=== PATIENT | male | born 1960 | race African-American/Black ===

== ENCOUNTER → 2017-03-15 | Outpatient (CLI) | payer MEDICAID, OTHER | LOC: MW.CHIM 08:31 | PROVIDERS: ATTEND Internal Medicine | DX: R19.7 Diarrhea, unspecified (principal) | CPT/HCPCS: 83630; 87046; 87324; 87899 ==

== ENCOUNTER 2017-04-08 15:34 | Emergency (ER) | payer MEDICAID, OTHER ==
[2017-04-08] MEDS ORDERED: Sodium Chloride 0.9% 2.5 ML Syringe FLUSH PRN (16:32)
[2017-04-08] MEDS ORDERED: Morphine 2 MG/ML Syringe IVPUSH ONE (16:32)
[2017-04-08] MEDS ORDERED: Ondansetron 4 MG/2 ML SDV IVPUSH ONE (16:32)
[2017-04-08] MEDS ORDERED: Sodium Chloride 0.9% 10 ML Syringe FLUSH PRN (16:32)
[2017-04-08] MEDS ORDERED: Sodium Chloride 0.9% 1,000 ML IV ONE (16:32)
[2017-04-08] MEDS ORDERED: Insulin Regular, Human 100 Units/ML 10 ML Vial SUBCUT ONE (16:32)
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
[2017-04-08 17:09] LABS: CHLORIDE,CL 100 mmol/L (98-110); SODIUM,NA 133 mmol/L (136-146)
[2017-04-08] MEDS ORDERED: Iopamidol 755 Mg/ML 100 ML Bottle IVPUSH STA (18:16)
[2017-04-08 19:35] VITALS: BP 134/85
--- NOTE | 2017-04-09 17:26 | CT ---
EXAM DATE: 04/08/17 PATIENT'S AGE: 57 Patient: MEGHA CORDOVA Facility: [place], [place] Site . Site : 1960 Study: CT Abdomen/Pelvis [id number]/[id number] 6:29:38 PM Ordering Physician: Yanick Christiansen Final Report: INDICATION: Abdominal pain. Dizziness. TECHNIQUE: CT abdomen and pelvis acquired with 100 mL of Isovue 370 IV contrast. COMPARISON: CT abdomen and pelvis November 08, 2016. FINDINGS: Lower chest: Unremarkable. Liver: Fatty change. Spleen: Unremarkable. Pancreas: Unremarkable. Gallbladder and bile ducts: Unremarkable. Kidneys: Unremarkable. Adrenal glands: Unremarkable. GI tract: There is fecal loading of the colon. Multifocal areas of small bowel feces sign are noted. No high-grade bowel obstruction. No evidence of acute appendicitis. No free air or free fluid. Vascular structures: Unremarkable. Lymph nodes: Unremarkable. Pelvic Organs: Mild prostatomegaly as before. Bladder is unremarkable. Bones: No acute abnormality. IMPRESSION: Multi focal areas of small bowel feces sign and diffuse fecal loading of the colon. Findings suggest decreased gastrointestinal transit. Low grade partial obstruction is also a consideration. Dictated by Garrett Holley MD @ 04/08/2017 7:04:46 PM Dictated by: Garrett Holley MD @ 04/08/2017 19:06:03 (Electronic Signature) Report Signed by Proxy. [facility]
== END 2017-04-08 19:41 | disposition home or self-care (01) ==
LOC: MW.ED 15:34
DX: K59.09 Other constipation (principal); E11.65 Type 2 diabetes mellitus with hyperglycemia; Z79.4 Long term (current) use of insulin
CPT/HCPCS: 36415; 74177; 80053; 81001; 82009; 82150; 82962; 83036; 83690; 85025; 96361; 96372; 96374; 96375; 99284; J2270; J2405; J7040; Q9967; J1815-GY

== ENCOUNTER 2017-05-03 21:21 | Emergency (ER) | payer MEDICAID, OTHER ==
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
[2017-05-03 22:02] LABS: CHLORIDE,CL 105 mmol/L (98-110); SODIUM,NA 137 mmol/L (136-146)
[2017-05-03 22:33] VITALS: BP 132/76
== END 2017-05-03 22:30 | disposition home or self-care (01) ==
LOC: MW.ED 21:21
DX: H60.11 Cellulitis of right external ear (principal); I10 Essential (primary) hypertension; E11.9 Type 2 diabetes mellitus without complications; Z79.4 Long term (current) use of insulin; Z79.84 Long term (current) use of oral hypoglycemic drugs; Z79.899 Other long term (current) drug therapy
CPT/HCPCS: 36415; 80053; 85025; 99282; 99283

== ENCOUNTER 2017-05-07 00:40 | Observation (INO) | payer SELFPAY ==
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
[2017-05-07] MEDS ORDERED: Sodium Chloride 0.9% 1,000 ML IV SCH (01:00)
[2017-05-07 01:33] LABS: CHLORIDE,CL 101 mmol/L (98-110); SODIUM,NA 132 mmol/L (136-146)
[2017-05-07] MEDS: Acetaminophen/oxyCODONE 325-10 MG Tab PO PRN (03:23)
[2017-05-07] MEDS: Piperacillin/Tazobactam 3.375 GM in Sodium Chloride 0.9% 50 ML IV SCH ×4 (03:24→21:41)
[2017-05-07] MEDS: Insulin Aspart 100 Units/ML 3 ML Pen SUBCUT SCH ×5 (03:58→21:46)
[2017-05-07] MEDS: HYDROmorphone 2 MG/ML Syringe IVPUSH PRN ×4 (03:59→16:18)
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
[2017-05-07] MEDS: Lisinopril 10 MG Tab PO SCH (08:52)
[2017-05-07] MEDS: Sodium Chloride 0.9% 1,000 ML IV SCH ×2 (08:54→21:40)
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
--- NOTE | 2017-05-07 10:55 | CT ---
EXAM DATE: 05/07/17 PATIENT'S AGE: 57 Patient: MEGHA CORDOVA Facility: [place], [place] Site . Site : 1960 Study: CT Head WO CONT [id number]/14/2017 1:32:17 AM Ordering Physician: Willy Ayala Final Report: INDICATIONS: Pain. Cellulitis right ear for 5 days. TECHNIQUE: CT head without contrast. COMPARISON: None FINDINGS: No mass effect or midline shift. No hydrocephalus. No CT evidence of acute hemorrhage or infarction. No abnormal extra-axial fluid collection. Bone windows show no acute abnormality. Visualized paranasal sinuses and orbits are unremarkable. Diffuse heterogeneous soft tissue thickening and stranding in the soft tissues about the right ear. There is a rounded focus concerning for developing abscess in the soft tissues adjacent to the right ear, for example as seen on axial image 21 of series 201. This measures approximately 1.2 cm. IMPRESSION: No acute intracranial abnormality. Diffuse heterogeneous soft tissue thickening and stranding of the soft tissues about the right ear, worrisome for cellulitis. Suspected small superficial soft tissue abscess measuring 1.2 cm in the preauricular region. Dictated by Garrett Holley MD @ 05/07/2017 1:44:39 AM Dictated by: Garrett Holley MD @ 05/07/2017 01:49:06 (Electronic Signature) Report Signed by Proxy. [facility]
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
[2017-05-07] MEDS ORDERED: fentaNYL 100 MCG/2 ML SDV ONE ×2 (17:29→19:08)
[2017-05-07] MEDS ORDERED: Propofol 200 MG/20 ML SDV ONE ×2 (17:29→19:11)
[2017-05-07] MEDS ORDERED: Lidocaine 2% 5 ML SDV ONE (17:29)
[2017-05-07] MEDS ORDERED: Midazolam 1 MG/ML 2 ML SDV ONE (17:29)
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
[2017-05-07] MEDS ORDERED: Lidocaine 2% with EPINEPHrine 1:100,000 20 ML MDV ONE (18:56)
[2017-05-07] MEDS ORDERED: Lidocaine 1% 50 ML MDV ONE (18:56)
--- NOTE | 2017-05-07 20:31 | PCM.POSTAN ---
POST ANESTHESIA ASSESSMENT - MENTAL STATUS Mental Status: alert, oriented - RESPIRATORY Respiratory Status: respiratory rate WNL, airway patent, O2 saturation stable - CARDIOVASCULAR CV Status: pulse rate WNL, blood pressure stable - GASTROINTESTINAL GI Status: no symptoms - POST OP HYDRATION Hydration Status: adequate & stable
--- NOTE | 2017-05-07 20:32 | PCM48HPAN ---
Post Anesthesia Note - EVALUATION WITHIN 48HRS OF ANESTHETIC Vital Signs in Normal Range: Yes Patient Participated in Evaluation: Yes Respiratory Function Stable: Yes Airway Patent: Yes Cardiovascular Function Stable: Yes Hydration Status Stable: Yes Pain Control Satisfactory: Yes Nausea and Vomiting Control Satisfactory: Yes Mental Status Recovered: Yes
[2017-05-08] MEDS: HYDROmorphone 2 MG/ML Syringe IVPUSH PRN ×4 (00:26→16:38)
[2017-05-08] MEDS: Piperacillin/Tazobactam 3.375 GM in Sodium Chloride 0.9% 50 ML IV SCH ×3 (04:00→14:54)
[2017-05-08] MEDS: Insulin Aspart 100 Units/ML 3 ML Pen SUBCUT SCH ×3 (06:48→17:02)
[2017-05-08 07:11] LABS: CHLORIDE,CL 106 mmol/L (98-110); SODIUM,NA 133 mmol/L (136-146)
[2017-05-08] MEDS: Acetaminophen/oxyCODONE 325-10 MG Tab PO PRN ×2 (07:40→14:53)
[2017-05-08] MEDS: Sodium Chloride 0.9% 1,000 ML IV SCH (08:23)
[2017-05-08] MEDS: Lisinopril 10 MG Tab PO SCH (09:15)
--- NOTE | 2017-05-08 09:29 | PCM.PN ---
- General Info Date of Service: 05/08/17 Functional Status: Reports: tolerating diet, urinating - Review of Systems General: Reports: No Symptoms HEENT: Reports: no symptoms Pulmonary: Reports: no symptoms Cardiovascular: Reports: No Symptoms Gastrointestinal: Reports: No symptoms Genitourinary: Reports: no symptoms Musculoskeletal: Reports: no symptoms Skin: Reports: no symptoms Neurological: Reports: No Symptoms Psychiatric: Reports: no symptoms - Patient Data Vitals - most recent: Last Vital Signs Temp 98.5 F 05/08/17 04:00 Pulse 69 05/08/17 04:00 Resp 16 05/08/17 04:00 BP 132/83 05/08/17 09:15 Pulse Ox 97 05/08/17 04:00 Weight - most recent: 79.968 kg I&O - last 24 hours: Intake & Output 05/07/17 05/08/17 05/08/17 22:59 06:59 14:59 Intake Total 2000 1000 1050 Output Total 250 700 Balance 6609 [id number] 2430 Lab Results last 24 hrs: Laboratory Results - last 24 hr 05/07/17 05/07/17 05/07/17 Range/Units 11:47 16:02 19:55 WBC (4.0-11.0) K/uL RBC (4.50-5.90) M/uL Hgb (13.0-17.0) g/dL Hct (38.0-50.0) % MCV (80.0-98.0) fL MCH (27.0-32.0) pg MCHC (31.0-37.0) g/dL RDW Std Deviation (28.0-62.0) fl RDW Coeff of Brittney (11.0-15.0) % Plt Count (150-400) K/uL MPV (7.40-12.00) fL Nucleated RBC % /100WBC Nucleated RBCs # K/uL Sodium (136-146) mmol/L Potassium (3.5-5.1) mmol/L Chloride (98-110) mmol/L Carbon Dioxide (21-31) mmol/L BUN (6.0-23.0) mg/dL Creatinine (0.6-1.5) mg/dL Est Cr Clr Drug Dosing mL/min Estimated GFR (MDRD) ml/min Glucose (60-110) mg/dL POC Glucose 236 H 192 H 157 H (60-110) mg/dL Calcium (8.8-10.8) mg/dL 05/07/17 05/08/17 05/08/17 Range/Units 21:45 06:15 06:15 WBC 6.00 (4.0-11.0) K/uL RBC 4.10 L (4.50-5.90) M/uL Hgb 12.1 L (13.0-17.0) g/dL Hct 37.1 L (38.0-50.0) % MCV 90.5 (80.0-98.0) fL MCH 29.5 (27.0-32.0) pg MCHC 32.6 (31.0-37.0) g/dL RDW Std Deviation 40.4 (28.0-62.0) fl RDW Coeff of Brittney 12 (11.0-15.0) % Plt Count 264 (150-400) K/uL MPV 9.40 (7.40-12.00) fL Nucleated RBC % 0.0 /100WBC Nucleated RBCs # 0 K/uL Sodium 133 L (136-146) mmol/L Potassium 3.9 (3.5-5.1) mmol/L Chloride 106 (98-110) mmol/L Carbon Dioxide 24 (21-31) mmol/L BUN 8 (6.0-23.0) mg/dL Creatinine 0.8 (0.6-1.5) mg/dL Est Cr Clr Drug Dosing 89.72 mL/min Estimated GFR (MDRD) > 60.0 ml/min Glucose 220 H (60-110) mg/dL POC Glucose 149 H (60-110) mg/dL Calcium 8.6 L (8.8-10.8) mg/dL 05/08/17 Range/Units 06:43 WBC (4.0-11.0) K/uL RBC (4.50-5.90) M/uL Hgb (13.0-17.0) g/dL Hct (38.0-50.0) % MCV (80.0-98.0) fL MCH (27.0-32.0) pg MCHC (31.0-37.0) g/dL RDW Std Deviation (28.0-62.0) fl RDW Coeff of Brittney (11.0-15.0) % Plt Count (150-400) K/uL MPV (7.40-12.00) fL Nucleated RBC % /100WBC Nucleated RBCs # K/uL Sodium (136-146) mmol/L Potassium (3.5-5.1) mmol/L Chloride (98-110) mmol/L Carbon Dioxide (21-31) mmol/L BUN (6.0-23.0) mg/dL Creatinine (0.6-1.5) mg/dL Est Cr Clr Drug Dosing mL/min Estimated GFR (MDRD) ml/min Glucose (60-110) mg/dL POC Glucose 195 H (60-110) mg/dL Calcium (8.8-10.8) mg/dL Med Orders - Current: Current Medications Hydromorphone HCl (Dilaudid) 2 mg IVPUSH Q3H PRN PRN Reason: Pain (severe 7-10) Last Admin: 05/08/17 09:07 Dose: 2 mg Piperacillin Sod/Tazobactam (Sod 3.375 gm/ Sodium Chloride) 50 mls @ 100 mls/ hr IV Q6H [facility] Last Admin: 05/08/17 09:08 Dose: 100 mls/hr Vancomycin HCl 1 gm/ Sodium (Chloride) 250 mls @ 166 mls/hr IV Q12H [facility] Last Admin: 05/08/17 00:28 Dose: 166 mls/hr Sodium Chloride (Normal Saline) 1,000 mls @ 125 mls/hr IV ASDIRECTED [facility] Last Admin: 05/08/17 08:23 Dose: 125 mls/hr Insulin Aspart (Novolog) 0 unit SUBCUT ACBED [facility] PRN Reason: Protocol Last Admin: 05/08/17 06:48 Dose: 2 units Lisinopril (Prinivil) 20 mg PO DAILY [facility] Last Admin: 05/08/17 09:15 Dose: 20 mg Oxycodone/Acetaminophen (Percocet 325-10 Mg) 1 tab PO Q4H PRN PRN Reason: Pain Last Admin: 05/08/17 07:40 Dose: 1 tab Vancomycin HCl (Pharmacy To Dose - Vancomycin) 1 dose .XX ASDIRECTED [facility] Discontinued Medications Fentanyl (Sublimaze) Confirm Administered Dose 100 mcg .ROUTE .STK-MED ONE Stop: 05/07/17 17:30 Fentanyl (Sublimaze) Confirm Administered Dose 100 mcg .ROUTE .STK-MED ONE Stop: 05/07/17 19:09 Sodium Chloride (Normal Saline) 1,000 mls @ 999 mls/hr IV STAT [facility] Last Admin: 05/07/17 01:01 Dose: 999 mls/hr Vancomycin HCl 1 gm/ Sodium (Chloride) 250 mls @ 166 mls/hr IV ONETIME ONE Stop: 05/07/17 02:22 Last Admin: 05/07/17 01:02 Dose: 166 mls/hr Lidocaine (Xylocaine-Mpf 2%) Confirm Administered Dose 5 ml .ROUTE .STK-MED ONE Stop: 05/07/17 17:30 Lidocaine HCl (Xylocaine 1%) Confirm Administered Dose 50 ml .ROUTE .STK-MED ONE Stop: 05/07/17 18:57 Lidocaine/Epinephrine (Xylocaine 2% With Epinephrine 1:100,000) Confirm Administered Dose 20 ml .ROUTE .STK-MED ONE Stop: 05/07/17 18:57 Midazolam HCl (Versed 1 Mg/Ml) Confirm Administered Dose 2 mg .ROUTE .STK-MED ONE Stop: 05/07/17 17:30 Propofol (Diprivan 20 Ml) Confirm Administered Dose 400 mg .ROUTE .STK-MED ONE Stop: 05/07/17 17:30 Propofol (Diprivan 20 Ml) Confirm Administered Dose 200 mg .ROUTE .STK-MED ONE Stop: 05/07/17 19:12 - Exam General: alert, oriented HEENT: Pupils equal, EOMI Neck: supple, trachea midline Lungs: Clear to auscultation, Normal respiratory effort Cardiovascular: Regular Rate, Regular Rhythm Back Exam: Normal Inspection Extremities: no edema Skin: warm, dry, intact Wound/Incisions: dressing dry and intact Neurological: no new focal deficit Psy/Mental Status: alert, normal affect, normal mood - Problem List Review Problem List Initiated/Reviewed/Updated: Yes - My Orders Last 24 Hours: My Active Orders 05/07/17 14:39 Code Status [Resuscitation Status] Routine - Plan Plan:: 57 yo male s/p right preauricular abscess drainage continue zosyn and vancomycin continue novolog ISS. monitor blood sugars Pain: po percocet and iv diluadid prn
--- NOTE | 2017-05-08 13:55 | PCM.CONSN ---
- General Info Date of Service: 05/08/17 Subjective Update: POD 1 Incision and drainage of Right pre auricular abscess likely secondary to infected pre auricular sinus Pain improved ++ since yesterday - overall feels better Functional Status: Reports: pain controlled - Review of Systems General: Reports: Fatigue HEENT: Reports: other Pulmonary: Reports: no symptoms Cardiovascular: Reports: No Symptoms Neurological: Reports: No Symptoms Psychiatric: Reports: no symptoms - Patient Data Vitals - most recent: Last Vital Signs Temp 37.1 C 05/08/17 08:00 Pulse 73 05/08/17 08:00 Resp 18 05/08/17 08:00 BP 132/83 05/08/17 09:15 Pulse Ox 95 05/08/17 08:00 Weight - most recent: 79.968 kg I&O - last 24 hours: Intake & Output 05/07/17 05/08/17 05/08/17 22:59 06:59 14:59 Intake Total 2000 1000 1100 Output Total 250 700 Balance 1022 436 8901 Lab Results last 24 hrs: Laboratory Results - last 24 hr 05/07/17 05/07/17 05/07/17 Range/Units 16:02 19:55 21:45 WBC (4.0-11.0) K/uL RBC (4.50-5.90) M/uL Hgb (13.0-17.0) g/dL Hct (38.0-50.0) % MCV (80.0-98.0) fL MCH (27.0-32.0) pg MCHC (31.0-37.0) g/dL RDW Std Deviation (28.0-62.0) fl RDW Coeff of Brittney (11.0-15.0) % Plt Count (150-400) K/uL MPV (7.40-12.00) fL Nucleated RBC % /100WBC Nucleated RBCs # K/uL Sodium (136-146) mmol/L Potassium (3.5-5.1) mmol/L Chloride (98-110) mmol/L Carbon Dioxide (21-31) mmol/L BUN (6.0-23.0) mg/dL Creatinine (0.6-1.5) mg/dL Est Cr Clr Drug Dosing mL/min Estimated GFR (MDRD) ml/min Glucose (60-110) mg/dL POC Glucose 192 H 157 H 149 H (60-110) mg/dL Calcium (8.8-10.8) mg/dL Vancomycin Trough (5-15) ug/mL 05/08/17 05/08/17 05/08/17 Range/Units 06:15 06:15 06:43 WBC 6.00 (4.0-11.0) K/uL RBC 4.10 L (4.50-5.90) M/uL Hgb 12.1 L (13.0-17.0) g/dL Hct 37.1 L (38.0-50.0) % MCV 90.5 (80.0-98.0) fL MCH 29.5 (27.0-32.0) pg MCHC 32.6 (31.0-37.0) g/dL RDW Std Deviation 40.4 (28.0-62.0) fl RDW Coeff of Brittney 12 (11.0-15.0) % Plt Count 264 (150-400) K/uL MPV 9.40 (7.40-12.00) fL Nucleated RBC % 0.0 /100WBC Nucleated RBCs # 0 K/uL Sodium 133 L (136-146) mmol/L Potassium 3.9 (3.5-5.1) mmol/L Chloride 106 (98-110) mmol/L Carbon Dioxide 24 (21-31) mmol/L BUN 8 (6.0-23.0) mg/dL Creatinine 0.8 (0.6-1.5) mg/dL Est Cr Clr Drug Dosing 89.72 mL/min Estimated GFR (MDRD) > 60.0 ml/min Glucose 220 H (60-110) mg/dL POC Glucose 195 H (60-110) mg/dL Calcium 8.6 L (8.8-10.8) mg/dL Vancomycin Trough (5-15) ug/mL 05/08/17 05/08/17 Range/Units 11:50 11:51 WBC (4.0-11.0) K/uL RBC (4.50-5.90) M/uL Hgb (13.0-17.0) g/dL Hct (38.0-50.0) % MCV (80.0-98.0) fL MCH (27.0-32.0) pg MCHC (31.0-37.0) g/dL RDW Std Deviation (28.0-62.0) fl RDW Coeff of Brittney (11.0-15.0) % Plt Count (150-400) K/uL MPV (7.40-12.00) fL Nucleated RBC % /100WBC Nucleated RBCs # K/uL Sodium (136-146) mmol/L Potassium (3.5-5.1) mmol/L Chloride (98-110) mmol/L Carbon Dioxide (21-31) mmol/L BUN (6.0-23.0) mg/dL Creatinine (0.6-1.5) mg/dL Est Cr Clr Drug Dosing mL/min Estimated GFR (MDRD) ml/min Glucose (60-110) mg/dL POC Glucose 269 H (60-110) mg/dL Calcium (8.8-10.8) mg/dL Vancomycin Trough 6.1 (5-15) ug/mL Jaylan Results last 24 hrs: Microbiology 05/07/17 19:10 Gram Stain - Preliminary Abscess - Ear, Right Med Orders - Current: Current Medications Hydromorphone HCl (Dilaudid) 2 mg IVPUSH Q3H PRN PRN Reason: Pain (severe 7-10) Last Admin: 05/08/17 09:07 Dose: 2 mg Piperacillin Sod/Tazobactam (Sod 3.375 gm/ Sodium Chloride) 50 mls @ 100 mls/ hr IV Q6H [facility] Last Admin: 05/08/17 09:08 Dose: 100 mls/hr Sodium Chloride (Normal Saline) 1,000 mls @ 125 mls/hr IV ASDIRECTED [facility] Last Admin: 05/08/17 08:23 Dose: 125 mls/hr Vancomycin HCl 1 gm/ Sodium (Chloride) 250 mls @ 166 mls/hr IV Q8H [facility] Last Admin: 05/08/17 13:08 Dose: 166 mls/hr Insulin Aspart (Novolog) 0 unit SUBCUT ACBED [facility] PRN Reason: Protocol Last Admin: 05/08/17 12:07 Dose: 6 units Lisinopril (Prinivil) 20 mg PO DAILY [facility] Last Admin: 05/08/17 09:15 Dose: 20 mg Oxycodone/Acetaminophen (Percocet 325-10 Mg) 1 tab PO Q4H PRN PRN Reason: Pain Last Admin: 05/08/17 07:40 Dose: 1 tab Vancomycin HCl (Pharmacy To Dose - Vancomycin) 1 dose .XX ASDIRECTED [facility] Discontinued Medications Fentanyl (Sublimaze) Confirm Administered Dose 100 mcg .ROUTE .STK-MED ONE Stop: 05/07/17 17:30 Fentanyl (Sublimaze) Confirm Administered Dose 100 mcg .ROUTE .STK-MED ONE Stop: 05/07/17 19:09 Sodium Chloride (Normal Saline) 1,000 mls @ 999 mls/hr IV STAT [facility] Last Admin: 05/07/17 01:01 Dose: 999 mls/hr Vancomycin HCl 1 gm/ Sodium (Chloride) 250 mls @ 166 mls/hr IV ONETIME ONE Stop: 05/07/17 02:22 Last Admin: 05/07/17 01:02 Dose: 166 mls/hr Vancomycin HCl 1 gm/ Sodium (Chloride) 250 mls @ 166 mls/hr IV Q12H [facility] Last Admin: 05/08/17 00:28 Dose: 166 mls/hr Lidocaine (Xylocaine-Mpf 2%) Confirm Administered Dose 5 ml .ROUTE .STK-MED ONE Stop: 05/07/17 17:30 Lidocaine HCl (Xylocaine 1%) Confirm Administered Dose 50 ml .ROUTE .STK-MED ONE Stop: 05/07/17 18:57 Lidocaine/Epinephrine (Xylocaine 2% With Epinephrine 1:100,000) Confirm Administered Dose 20 ml .ROUTE .STK-MED ONE Stop: 05/07/17 18:57 Midazolam HCl (Versed 1 Mg/Ml) Confirm Administered Dose 2 mg .ROUTE .STK-MED ONE Stop: 05/07/17 17:30 Propofol (Diprivan 20 Ml) Confirm Administered Dose 400 mg .ROUTE .STK-MED ONE Stop: 05/07/17 17:30 Propofol (Diprivan 20 Ml) Confirm Administered Dose 200 mg .ROUTE .STK-MED ONE Stop: 05/07/17 19:12 - Exam General: alert, oriented HEENT: Other Neck: supple Skin: warm, dry, intact Physical Findings Comments:: Head dressing in place Dressing removed The wound packing was removed Very minimal purulence expressed Swelling improved +++ Some swelling around the sinus + Tragal tenderness resolved; some swelling persists Consult PN Assessment/Plan Procedures: Procedures ASSAY OF AMYLASE (04/08/17) ASSAY OF LIPASE (04/08/17) CHEST X-RAY 2VW FRONTAL&LATL (11/08/16) CLOSTRIDIUM AG IA (03/15/17) COMPLETE CBC W/AUTO DIFF WBC (05/03/17) COMPREHEN METABOLIC PANEL (05/03/17) CT ABD & PELV W/CONTRAST (04/08/17) CT ABD & PELVIS W/O CONTRAST (11/08/16) ELECTROCARDIOGRAM TRACING (11/08/16) EMERGENCY DEPT VISIT (05/03/17) EMERGENCY DEPT VISIT (04/08/17) GLUCOSE BLOOD TEST (04/08/17) GLYCOSYLATED HEMOGLOBIN TEST (04/08/17) HYDRATE IV INFUSION ADD-ON (04/08/17) HYDRATION IV INFUSION INIT (11/08/16) LACTOFERRIN FECAL (QUAL) (03/15/17) PROTHROMBIN TIME (11/08/16) ROUTINE VENIPUNCTURE (05/03/17) STOOL CULTR AEROBIC BACT EA (03/15/17) TEST FOR ACETONE/KETONES (04/08/17) THER/PROPH/DIAG INJ IV PUSH (04/08/17) THER/PROPH/DIAG INJ SC/IM (04/08/17) TX/PRO/DX INJ NEW DRUG ADDON (04/08/17) URINALYSIS AUTO W/SCOPE (04/08/17) (1) Perichondritis of right pinna SNOMED Code(s): 23471937 Code(s): H61.001 - UNSPECIFIED PERICHONDRITIS OF RIGHT EXTERNAL EAR Current Visit: Yes (2) Cellulitis SNOMED Code(s): 224029854 Code(s): L03.90 - CELLULITIS, UNSPECIFIED Current Visit: Yes (3) Facial abscess SNOMED Code(s): 170710892 Code(s): L02.01 - CUTANEOUS ABSCESS OF FACE Current Visit: Yes (4) Hyperglycemia SNOMED Code(s): 17820857 Code(s): R73.9 - HYPERGLYCEMIA, UNSPECIFIED Current Visit: No Problem List Initiated/Reviewed/Updated: Yes My Orders last 24 hours: My Active Orders 05/07/17 19:10 CULTURE ANAEROBIC [RM] Routine CULTURE EAR [RM] Routine GRAM STAIN [RM] Routine Plan: - Continue with IV antibiotics - Glycemic control to facilitate wound healing - Can be discharged on PO Augmentin for 10 days - Follow up in ENT clinic Wednesday - 05/10 - Recommend formal excision of the pre auricular tract to prevent further infections - To follow up on wound C/S ( gram stain reviewed) - Discussed with th patient and his
[2017-05-08 17:59] VITALS: BP 136/78
--- NOTE | 2017-05-08 19:24 | PCM.DCSUM1 ---
Discharge Summary - Hospital Course Brief History: He was admitted to the hospital with a right preauricular sinus. - Discharge Data Discharge Date: 05/08/17 Discharge Disposition: Home, Self-Care 01 Condition: Good - Discharge Diagnosis/Problem(s) (1) Cellulitis SNOMED Code(s): 255602145 ICD Code: L03.90 - CELLULITIS, UNSPECIFIED Status: Acute Current Visit: Yes (2) Facial abscess SNOMED Code(s): 722892399 ICD Code: L02.01 - CUTANEOUS ABSCESS OF FACE Status: Acute Current Visit : Yes - Patient Summary/Data Consults: Consultations 05/07/17 08:12 Consult to Physician [CONS] Urgent Hospital Course: He was started on zosyn and vancomycin. Dr Villar, ENT , saw him in consultation. She took him to the operating room where she performed an incision and drainage. Gram stain showed gram positive cocci and gram negative organisms. His blood sugars were monitored. He feels much better at discharge. He has been advised regarding potential hazards of opioid use. He is to stay off of work at least until May 11, 2017. He is prescribed: Percocet 10/325 1 po q 4 hours prn pain #30 Bactrim DS bid x 10 days Augmentin 875 po bid x [address] Follow up [address] Villar on Wednesday, May 10, 2017. also routine follow up with his primary care attending physician, Dr Silvino Ott MD - Discharge Plan Prescriptions/Med Rec: Amoxicillin/Clavulanate K [Augmentin 875 MG/125 MG] 1 tab PO Q12HR #20 tablet Sulfamethoxazole/Trimethoprim [Bactrim Ds Tablet] 1 each PO BID #20 tablet oxyCODONE HCl/Acetaminophen [Percocet 10-325 mg Tablet] 1 each PO Q4H PRN #30 tablet PRN Reason: Pain Home Medications: Home Meds Insulin Aspart [NovoLOG] 15 dose SQ BID 11/08/16 [History] Lisinopril 20 mg PO DAILY 05/03/17 [History] metFORMIN HCl [Metformin HCl] 500 mg PO BID 05/03/17 [History] Amoxicillin/Clavulanate K [Augmentin 875 MG/125 MG] 1 tab PO Q12HR #20 tablet [Rx] Sulfamethoxazole/Trimethoprim [Bactrim Ds Tablet] 1 each PO BID #20 tablet 05/08 [Rx] oxyCODONE HCl/Acetaminophen [Percocet 10-325 mg Tablet] 1 each PO Q4H PRN #30 tablet 05/08/17 [Rx] Patient Handouts: Abscess, [id number], Cellulitis, Adult, [id number] Referrals: Michelle Villar MD [Physician] - 05/10/17 (pls make an appt to see Dr. Villar on Wednesday.) - Patient Data Vitals - Most Recent: Last Vital Signs Temp 97.8 F 05/08/17 16:00 Pulse 71 05/08/17 16:00 Resp 18 05/08/17 16:00 BP 136/78 05/08/17 16:00 Pulse Ox 93 L 05/08/17 16:00 Weight - Most Recent: 79.968 kg I&O - Last 24 hours: Intake & Output 05/08/17 05/08/17 05/08/17 06:59 14:59 22:59 Intake Total 1000 1350 1505 Output Total 700 700 Balance 300 1350 805 Lab Results - Last 24 hrs: Laboratory Results - last 24 hr 05/07/17 05/07/17 05/07/17 Range/Units 16:02 19:55 21:45 WBC (4.0-11.0) K/uL RBC (4.50-5.90) M/uL Hgb (13.0-17.0) g/dL Hct (38.0-50.0) % MCV (80.0-98.0) fL MCH (27.0-32.0) pg MCHC (31.0-37.0) g/dL RDW Std Deviation (28.0-62.0) fl RDW Coeff of Brittney (11.0-15.0) % Plt Count (150-400) K/uL MPV (7.40-12.00) fL Nucleated RBC % /100WBC Nucleated RBCs # K/uL Sodium (136-146) mmol/L Potassium (3.5-5.1) mmol/L Chloride (98-110) mmol/L Carbon Dioxide (21-31) mmol/L BUN (6.0-23.0) mg/dL Creatinine (0.6-1.5) mg/dL Est Cr Clr Drug Dosing mL/min Estimated GFR (MDRD) ml/min Glucose (60-110) mg/dL POC Glucose 192 H 157 H 149 H (60-110) mg/dL Calcium (8.8-10.8) mg/dL Vancomycin Trough (5-15) ug/mL 05/08/17 05/08/17 05/08/17 Range/Units 06:15 06:15 06:43 WBC 6.00 (4.0-11.0) K/uL RBC 4.10 L (4.50-5.90) M/uL Hgb 12.1 L (13.0-17.0) g/dL Hct 37.1 L (38.0-50.0) % MCV 90.5 (80.0-98.0) fL MCH 29.5 (27.0-32.0) pg MCHC 32.6 (31.0-37.0) g/dL RDW Std Deviation 40.4 (28.0-62.0) fl RDW Coeff of Brittney 12 (11.0-15.0) % Plt Count 264 (150-400) K/uL MPV 9.40 (7.40-12.00) fL Nucleated RBC % 0.0 /100WBC Nucleated RBCs # 0 K/uL Sodium 133 L (136-146) mmol/L Potassium 3.9 (3.5-5.1) mmol/L Chloride 106 (98-110) mmol/L Carbon Dioxide 24 (21-31) mmol/L BUN 8 (6.0-23.0) mg/dL Creatinine 0.8 (0.6-1.5) mg/dL Est Cr Clr Drug Dosing 89.72 mL/min Estimated GFR (MDRD) > 60.0 ml/min Glucose 220 H (60-110) mg/dL POC Glucose 195 H (60-110) mg/dL Calcium 8.6 L (8.8-10.8) mg/dL Vancomycin Trough (5-15) ug/mL 05/08/17 05/08/17 05/08/17 Range/Units 11:50 11:51 16:45 WBC (4.0-11.0) K/uL RBC (4.50-5.90) M/uL Hgb (13.0-17.0) g/dL Hct (38.0-50.0) % MCV (80.0-98.0) fL MCH (27.0-32.0) pg MCHC (31.0-37.0) g/dL RDW Std Deviation (28.0-62.0) fl RDW Coeff of Brittney (11.0-15.0) % Plt Count (150-400) K/uL MPV (7.40-12.00) fL Nucleated RBC % /100WBC Nucleated RBCs # K/uL Sodium (136-146) mmol/L Potassium (3.5-5.1) mmol/L Chloride (98-110) mmol/L Carbon Dioxide (21-31) mmol/L BUN (6.0-23.0) mg/dL Creatinine (0.6-1.5) mg/dL Est Cr Clr Drug Dosing mL/min Estimated GFR (MDRD) ml/min Glucose (60-110) mg/dL POC Glucose 269 H 295 H (60-110) mg/dL Calcium (8.8-10.8) mg/dL Vancomycin Trough 6.1 (5-15) ug/mL [facility] Results - Last 24 hrs: Microbiology 05/07/17 19:10 Gram Stain - Preliminary Abscess - Ear, Right Med Orders - Current: Current Medications Hydromorphone HCl (Dilaudid) 2 mg IVPUSH Q3H PRN PRN Reason: Pain (severe 7-10) Last Admin: 05/08/17 16:38 Dose: 2 mg Piperacillin Sod/Tazobactam (Sod 3.375 gm/ Sodium Chloride) 50 mls @ 100 mls/ hr IV Q6H [facility] Last Admin: 05/08/17 14:54 Dose: 100 mls/hr Sodium Chloride (Normal Saline) 1,000 mls @ 125 mls/hr IV ASDIRECTED [facility] Last Admin: 05/08/17 08:23 Dose: 125 mls/hr Vancomycin HCl 1 gm/ Sodium (Chloride) 250 mls @ 166 mls/hr IV Q8H [facility] Last Admin: 05/08/17 13:08 Dose: 166 mls/hr Insulin Aspart (Novolog) 0 unit SUBCUT ACBED [facility] PRN Reason: Protocol Last Admin: 05/08/17 17:02 Dose: 6 units Lisinopril (Prinivil) 20 mg PO DAILY [facility] Last Admin: 05/08/17 09:15 Dose: 20 mg Oxycodone/Acetaminophen (Percocet 325-10 Mg) 1 tab PO Q4H PRN PRN Reason: Pain Last Admin: 05/08/17 14:53 Dose: 1 tab Vancomycin HCl (Pharmacy To Dose - Vancomycin) 1 dose .XX ASDIRECTED [facility] Discontinued Medications Fentanyl (Sublimaze) Confirm Administered Dose 100 mcg .ROUTE .STK-MED ONE Stop: 05/07/17 17:30 Fentanyl (Sublimaze) Confirm Administered Dose 100 mcg .ROUTE .STK-MED ONE Stop: 05/07/17 19:09 Sodium Chloride (Normal Saline) 1,000 mls @ 999 mls/hr IV STAT [facility] Last Admin: 05/07/17 01:01 Dose: 999 mls/hr Vancomycin HCl 1 gm/ Sodium (Chloride) 250 mls @ 166 mls/hr IV ONETIME ONE Stop: 05/07/17 02:22 Last Admin: 05/07/17 01:02 Dose: 166 mls/hr Vancomycin HCl 1 gm/ Sodium (Chloride) 250 mls @ 166 mls/hr IV Q12H [facility] Last Admin: 05/08/17 00:28 Dose: 166 mls/hr Lidocaine (Xylocaine-Mpf 2%) Confirm Administered Dose 5 ml .ROUTE .STK-MED ONE Stop: 05/07/17 17:30 Lidocaine HCl (Xylocaine 1%) Confirm Administered Dose 50 ml .ROUTE .STK-MED ONE Stop: 05/07/17 18:57 Lidocaine/Epinephrine (Xylocaine 2% With Epinephrine 1:100,000) Confirm Administered Dose 20 ml .ROUTE .STK-MED ONE Stop: 05/07/17 18:57 Midazolam HCl (Versed 1 Mg/Ml) Confirm Administered Dose 2 mg .ROUTE .STK-MED ONE Stop: 05/07/17 17:30 Propofol (Diprivan 20 Ml) Confirm Administered Dose 400 mg .ROUTE .STK-MED ONE Stop: 05/07/17 17:30 Propofol (Diprivan 20 Ml) Confirm Administered Dose 200 mg .ROUTE .STK-MED ONE Stop: 05/07/17 19:12 *Q Meaningful Use (DIS) - VTE *Q VTE Criteria *Q: - Stroke *Q Stroke Criteria *Q: - AMI *Q AMI Criteria *Q:
== END 2017-05-08 20:25 | disposition home or self-care (01) ==
LOC: MW.ED 00:40 → MW.MS 02:15
PROVIDERS: ADMIT Family Medicine; ATTEND Family Medicine
PROC: 0H91XZZ Drainage of Face Skin, External Approach (ICD-10-PCS; principal; 2017-05-08)
DX: L03.211 Cellulitis of face (principal); L02.01 Cutaneous abscess of face; E11.65 Type 2 diabetes mellitus with hyperglycemia; Z79.84 Long term (current) use of oral hypoglycemic drugs; Z79.4 Long term (current) use of insulin; R50.9 Fever, unspecified; H61.001 Unspecified perichondritis of right external ear; R53.83 Other fatigue; R05 Cough; K02.9 Dental caries, unspecified; I10 Essential (primary) hypertension; Z79.899 Other long term (current) drug therapy
CPT/HCPCS: 10060; 36415; 70450; 80048; 80053; 80202; 82962; 85025; 85027; 87040; 87070; 87075; 87077; 87205; 96365; 96366; 96367; 96375; 96376; 99284; A9270; G0378; J1170; J1815; J2250; J2543; J3010; J3370; J7040; J7050; 00120; 99282; J2704

== ENCOUNTER 2018-07-18 19:51 | Emergency (ER) | payer SELFPAY ==
[2018-07-18] MEDS ORDERED: Sodium Chloride 0.9% 10 ML Syringe FLUSH PRN (20:06)
[2018-07-18] MEDS ORDERED: Sodium Chloride 0.9% 2.5 ML Syringe FLUSH PRN (20:06)
[2018-07-18] MEDS ORDERED: Sodium Chloride 0.9% 1,000 ML IV ONE (20:06)
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
[2018-07-18 20:46] LABS: CHLORIDE,CL 101 mmol/L (98-107); SODIUM,NA 135 mmol/L (136-148)
[2018-07-18] MEDS ORDERED: Iopamidol 755 MG/ML 500 ML Multipack Bottle IVPUSH STA (21:28)
[2018-07-19 00:30] VITALS: BP 146/78
--- NOTE | 2018-07-19 11:00 | CT ---
EXAM DATE: 07/18/18 PATIENT'S AGE: 58 Patient: MEGHA CORDOVA Facility: [place], [place] Site . Site : 1960 Study: CT Abdomen/Pelvis [id number]/24/2018 9:34:40 PM Ordering Physician: Doctor Duvall Final Report: INDICATION: Right lower quadrant abdomen pain TECHNIQUE: CT abdomen and pelvis acquired with 100 cc Omnipaque IV contrast. COMPARISON: None. FINDINGS: Lower chest: Unremarkable. Liver: Unremarkable. Normal in size and attenuation. No masses. Gallbladder and bile ducts: Unremarkable. No stones or inflammation. No biliary dilatation. Pancreas: Unremarkable. No mass or inflammation. Spleen: Unremarkable. Normal in size. No masses. Adrenal glands: Unremarkable. No nodules. Kidneys: Unremarkable. No masses, stones, or hydronephrosis. GI tract: Unremarkable. Normal in caliber. No sign of mass or inflammation. Normal appendix. Vasculature: Unremarkable. Lymph nodes: No lymphadenopathy. Omentum/Peritoneum/Abdominal Wall: Unremarkable. No sign of mass or infiltration. No free air or significant free fluid. Pelvis: Unremarkable. Bones: Unremarkable for age. IMPRESSION: Unremarkable CT of the abdomen and pelvis. No findings to explain right lower quadrant abdomen pain. Specifically, the appendix and GI tract are unremarkable. Please note that all CT scans at this facility use dose modulation, iterative reconstruction, and/or weight-based dosing when appropriate to reduce radiation dose to as low as reasonably achievable. Dictated by Charly Edge MD @ Jul 18 2018 10:07PM (Electronic Signature) Report Signed by Proxy. MTDD
== END 2018-07-19 00:21 | disposition home or self-care (01) ==
LOC: MW.ED 19:51
DX: R10.31 Right lower quadrant pain (principal); R10.11 Right upper quadrant pain; I10 Essential (primary) hypertension; E11.9 Type 2 diabetes mellitus without complications
CPT/HCPCS: 36415; 74177; 80053; 81001; 83690; 85025; 87086; 96360; 99284; J7040; Q9967; 99283

== ENCOUNTER 2018-11-02 08:43 | Emergency (ER) | payer MEDICAID ==
[2018-11-02] MEDS ORDERED: Sodium Chloride 0.9% 10 ML Syringe FLUSH PRN (08:54)
[2018-11-02] MEDS ORDERED: Sodium Chloride 0.9% 2.5 ML Syringe FLUSH PRN (08:54)
[2018-11-02] MEDS ORDERED: Sodium Chloride 0.9% 500 ML IV ONE ×2 (08:58→10:34)
[2018-11-02] MEDS ORDERED: Ondansetron 4 MG/2 ML SDV IVPUSH ONE (08:58)
[2018-11-02] MEDS ORDERED: Morphine 2 MG/ML Syringe IVPUSH ONE (08:58)
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
[2018-11-02 09:53] LABS: CHLORIDE,CL 104 mmol/L (98-107); SODIUM,NA 139 mmol/L (136-148)
--- NOTE | 2018-11-02 10:36 | CT ---
EXAMINATION: Non contrast CT head. Coronal and sagittal reformats. HISTORY: Pain FINDINGS: No evidence of intra or extra axial hemorrhage, mass, midline shift, hydrocephalus or edema. Mild periventricular and subcortical white matter hypodensities. No hypoattenuation changes in the major vascular territories to suggest acute infarct. No abnormal intracranial calcifications are detected. No evidence of substantial vascular calcifications. Paranasal sinuses and mastoid air cells are well aerated without substantial findings. Orbits and globes are symmetric. Pituitary fossa appears unremarkable. Calvarium is intact. No evidence of skull fracture. IMPRESSION: 1. No acute intracranial findings. 2. Mild small vessel ischemic changes.
--- NOTE | 2018-11-02 10:51 | CT ---
EXAMINATION: CT cervical spine HISTORY: Pain COMPARISON: None TECHNIQUE: Axial CT imaging obtained through the cervical spine without contrast. Coronal and sagittal reconstructions obtained. FINDINGS: The cervical spinal alignment is normal. The vertebral body heights and disc spaces appear maintained. There is no fracture or acute osseous abnormality. Bone mineralization is normal. No bulky retroperitoneal lymphadenopathy. IMPRESSION: 1. No acute cervical spinal abnormality.
[2018-11-02] MEDS ORDERED: Iopamidol 755 MG/ML 500 ML Multipack Bottle IVPUSH ONE (11:15)
--- NOTE | 2018-11-02 11:22 | CT ---
CT of the chest, abdomen and pelvis with contrast. HISTORY: Shortness of breath TECHNIQUE: Axial CT images were obtained of the chest, abdomen and pelvis following administration of 100 mL of Isovue-370 in the left antecubital fossa without complication. Coronal and sagittal reconstructions obtained. Moderate motion artifact noted throughout the abdomen. FINDINGS: Chest: The lungs are clear without focal consolidation. No pleural effusion or pneumothorax. The heart is normal in size without a pericardial effusion. 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 This does demonstrate mild impression on the trachea and esophagus. Central airways are clear. No mediastinal, axillary, or hilar lymphadenopathy. Abdomen: The liver, spleen, adrenal glands, and pancreas appear normal. The gallbladder is normal. There is no bulky retroperitoneal lymphadenopathy or abdominal ascites. The kidneys enhance and function symmetrically without evidence of obstructive uropathy. Pelvis: The large and small bowel are normal in caliber without evidence of obstruction. The appendix is not well characterized, notable motion is noted within this region. The urinary bladder is normal. There is no pelvic lymphadenopathy or free pelvic fluid. No suspicious osseous abnormalities identified. IMPRESSION: 1. No definite acute finding noted within the chest, abdomen, or pelvis, however there is notable artifact within the abdomen and pelvis. 2. 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
[2018-11-02 16:04] VITALS: BP 114/93
== END 2018-11-02 11:49 | disposition home or self-care (01) ==
LOC: MW.ED 08:43
DX: S16.1XXA Strain of muscle, fascia and tendon at neck level, initial encounter (principal); S20.219A Contusion of unspecified front wall of thorax, initial encounter; S30.1XXA Contusion of abdominal wall, initial encounter; V89.2XXA Person injured in unspecified motor-vehicle accident, traffic, initial encounter
CPT/HCPCS: 36415; 70450; 71260; 72125; 74177; 80053; 81001; 84484; 85025; 93005; 96361; 96374; 96375; 99285; J2270; J2405; J7040; Q9967

== ENCOUNTER 2019-08-21 13:02 | Observation (INO) | payer MEDICAID, OTHER ==
[2019-08-21] MEDS ORDERED: Aspirin 81 MG Tab.Chew PO ONE (13:09)
[2019-08-21] MEDS ORDERED: Ondansetron 4 MG/2 ML SDV IVPUSH ONE (13:10)
[2019-08-21] MEDS: Nitroglycerin 0.4 MG Tab.SL SL PRN ×2 (13:28→13:33)
[2019-08-21] MEDS: Sodium Chloride 0.9% 1,000 ML IV SCH ×2 (13:29→18:29)
[2019-08-21 13:47] LABS: BLOOD UREA NITROGEN,BUN 19 mg/dL (7.0-18.0); CARBON DIOXIDE,CO2 29.1 mmol/L (21.0-32.0); CHLORIDE,CL 96 mmol/L (98-107); GLUCOSE RANDOM 432 mg/dL (74-106); POTASSIUM,K 3.7 mmol/L (3.5-5.1); SODIUM,NA 135 mmol/L (136-148)
--- NOTE | 2019-08-21 13:47 | CR ---
Chest: Portable view of the chest was obtained. Comparison: Prior chest x-ray of 11/08/16. Heart size and mediastinum are normal. Lungs are clear with no acute parenchymal change. Bony structures are unremarkable. Impression: Nothing acute is seen on portable chest x-ray. Diagnostic code #1 MTDD
[2019-08-21] MEDS ORDERED: Morphine 2 MG/ML Syringe IVPUSH ONE (13:56)
[2019-08-21] MEDS ORDERED: Acetaminophen 325 MG Tab PO PRN (14:20)
[2019-08-21] MEDS ORDERED: Ondansetron 4 MG Tab.DIS PO PRN (14:20)
[2019-08-21] MEDS ORDERED: Ondansetron 4 MG/2 ML SDV IVPUSH PRN (14:20)
[2019-08-21] MEDS ORDERED: Temazepam 15 MG Cap PO PRN (14:20)
[2019-08-21] MEDS ORDERED: Acetaminophen/HYDROcodone 325-5 MG Tab PO PRN (14:20)
[2019-08-21] MEDS ORDERED: Enoxaparin 40 MG/0.4 ML Syringe SUBCUT SCH (14:30)
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
[2019-08-21] MEDS ORDERED: Insulin Aspart 100 Units/ML 3 ML Pen SUBCUT SCH ×2 (15:25→17:00)
[2019-08-21] MEDS ORDERED: Insulin Aspart 100 Units/ML 3 ML Pen SUBCUT STA (15:59)
[2019-08-21] MEDS ORDERED: Insulin Regular, Human 100 Units/ML 10 ML Vial IVPUSH ONE (16:21)
[2019-08-21] MEDS ORDERED: Insulin Regular, Human 100 Units/ML 10 ML Vial IVPUSH STA (16:21)
[2019-08-21] MEDS: Insulin Aspart 100 Units/ML 3 ML Pen SUBCUT SCH ×3 (16:25→21:00)
[2019-08-21] MEDS ORDERED: FLU Vacc QS2019-20(6MOS+)/PF 60 MCG/0.5 ML SYRINGE IM ONE (17:00)
[2019-08-21] MEDS ORDERED: Ibuprofen 800 MG Tab PO PRN (18:55)
[2019-08-21] MEDS: Morphine 10 MG/ML Syringe IVPUSH PRN (20:51)
[2019-08-21] MEDS ORDERED: atorvaSTATin 40 MG Tab PO SCH (21:00)
[2019-08-21] MEDS ORDERED: Insulin Detemir 100 Units/ML 3 ML Pen SUBCUT SCH (21:00)
[2019-08-22] MEDS: Morphine 10 MG/ML Syringe IVPUSH PRN (04:15)
[2019-08-22] MEDS: Insulin Aspart 100 Units/ML 3 ML Pen SUBCUT SCH ×2 (06:47→11:58)
[2019-08-22 06:50] LABS: BLOOD UREA NITROGEN,BUN 17 mg/dL (7.0-18.0); CARBON DIOXIDE,CO2 27.9 mmol/L (21.0-32.0); CHLORIDE,CL 102 mmol/L (98-107); GLUCOSE RANDOM 160 mg/dL (74-106); POTASSIUM,K 3.6 mmol/L (3.5-5.1); SODIUM,NA 138 mmol/L (136-148)
[2019-08-22 07:38] VITALS: PULSE 73
[2019-08-22] MEDS ORDERED: Aspirin 81 MG Tab.Chew PO SCH (09:00)
[2019-08-22] MEDS ORDERED: Ketorolac 30 MG/ML SDV IVPUSH ONE (10:50)
[2019-08-22 12:46] VITALS: BP 135/78
--- NOTE | 2019-08-22 14:14 | PCM.DCSUM1 ---
Discharge Summary - Hospital Course Free Text/Narrative:: 59 y/o male with history of type 2 diabetes and questionable CAD s/p catheterization who presented to the ED complaining of on and off left chest pain for the past 1 week. He was admitted for ACS rule out. Patient states his pain gets worse with direct palpation on left chest area or when sleeping on left decubitus position. Denies any recent trauma, procedures. EKG did not show any ST changes. Serial troponins were negative. HgA1c 9.0. Echo results were pending at time of discharge. His pain was attributed to musculoskeletal in origin due to tenderness with palpation and left shoulder pain with palpation as well. Toradol alleviated his pain. He was instructed to follow-up with his PCP and cardiology for possible stress test. He was discharged home on aspirin, nitroglycerin, atorvastatin, Levemir 10 units SQ at night and Novolog 5 units SQ TIDAC. - Discharge Data Discharge Date: 08/22/19 Discharge Disposition: Home, Self-Care 01 Condition: Stable - Referral to Home Health Primary Care Physician: Juancho Cha MD - Patient Summary/Data Consults: Consultations 08/22/19 10:08 Consult to Diabetic Nurse Specialist [CONS] Routine - Patient Instructions Diet: Diabetic Diet Activity: As Tolerated Notify Provider of: Fever, Increased Pain, Swelling and Redness, Nausea and/or Vomiting - Discharge Plan *PRESCRIPTION DRUG MONITORING PROGRAM REVIEWED*: Not Applicable *COPY OF PRESCRIPTION DRUG MONITORING REPORT IN PATIENT JANENE: Not Applicable Prescriptions/Med Rec: Aspirin 81 mg PO DAILY #30 tab.chew atorvaSTATin [Lipitor] 40 mg PO BEDTIME #30 tablet Insulin Aspart [NovoLOG] 5 unit SUBCUT TIDAC #1 pen Insulin Detemir [Levemir] 10 unit SUBCUT BEDTIME #1 pen Nitroglycerin [Nitrostat] 0.4 mg SL Q5M PRN #30 tab.sl PRN Reason: Chest Pain Home Medications: Home Meds Acetaminophen [Tylenol Extra Strength] 1 - 2 tab PO ASDIRECTED PRN 08/15/18 [ History] Lisinopril 20 mg PO DAILY 08/15/18 [History] metFORMIN HCl [Metformin HCl] 500 mg PO BID 08/15/18 [History] Cyclobenzaprine [Flexeril] 10 mg PO BID PRN #12 tab 11/02/18 [Rx] traMADol HCl [Tramadol HCl] 50 mg PO Q6H PRN #16 tablet 11/02/18 [Rx] Aspirin 81 mg PO DAILY #30 tab.chew 08/22/19 [Rx] Insulin Aspart [NovoLOG] 5 unit SUBCUT TIDAC #1 pen 08/22/19 [Rx] Insulin Detemir [Levemir] 10 unit SUBCUT BEDTIME #1 pen 08/22/19 [Rx] Nitroglycerin [Nitrostat] 0.4 mg SL Q5M PRN #30 tab.sl 08/22/19 [Rx] atorvaSTATin [Lipitor] 40 mg PO BEDTIME #30 tablet 08/22/19 [Rx] Patient Handouts: Insulin Aspart injection, Exercise Stress Test, [id number] , Aspirin and Your Heart, Insulin Detemir injection, Atorvastatin tablets, Nitroglycerin sublingual tablets, Exercise Stress Test, Chest Wall Pain Referrals: Ephraim Greene MD [Resident] - 09/07/19 1:00 pm Juancho Cha MD [Primary Care Provider] - All Pradhan MD [Physician] - - Discharge Summary/Plan Comment DC Time >30 min.: No - Patient Data Vitals - Most Recent: Last Vital Signs Temp 36.4 C 08/22/19 12:00 Pulse 73 08/22/19 07:38 Resp 16 08/22/19 12:00 BP 135/78 08/22/19 12:00 Pulse Ox 98 08/22/19 12:00 Weight - Most Recent: 80.3 kg I&O - Last 24 hours: Intake & Output 08/21/19 08/22/19 08/22/19 22:59 06:59 14:59 Intake Total 1297 940 425 Output Total 250 400 240 Balance 1047 540 185 Lab Results - Last 24 hrs: Laboratory Results - last 24 hr 08/21/19 08/21/19 08/21/19 Range/Units 13:10 13:10 15:56 WBC (4.0-11.0) K/uL RBC (4.50-5.90) M/uL Hgb (13.0-17.0) g/dL Hct (38.0-50.0) % MCV (80.0-98.0) fL MCH (27.0-32.0) pg MCHC (31.0-37.0) g/dL RDW Std Deviation (28.0-62.0) fl RDW Coeff of Brittney (11.0-15.0) % Plt Count (150-400) K/uL MPV (7.40-12.00) fL Neut % (Auto) (48.0-80.0) % Lymph % (Auto) (16.0-40.0) % Delta % (Auto) (0.0-15.0) % Eos % (Auto) (0.0-7.0) % Baso % (Auto) (0.0-1.5) % Neut # (Auto) (1.4-5.7) K/uL Lymph # (Auto) (0.6-2.4) K/uL Delta # (Auto) (0.0-0.8) K/uL Eos # (Auto) (0.0-0.7) K/uL Baso # (Auto) (0.0-0.1) K/uL Nucleated RBC % /100WBC Nucleated RBCs # K/uL Sodium (136-148) mmol/L Potassium (3.5-5.1) mmol/L Chloride (98-107) mmol/L Carbon Dioxide (21.0-32.0) mmol/L BUN (7.0-18.0) mg/dL Creatinine (0.8-1.3) mg/dL Est Cr Clr Drug Dosing mL/min Estimated GFR (MDRD) ml/min Glucose (74-106) mg/dL POC Glucose 455 H (60-110) mg/dL Hemoglobin A1c 9.0 H (4.5-6.2) % Calcium (8.5-10.1) mg/dL Total Bilirubin (0.2-1.0) mg/dL AST (15-37) IU/L ALT (14-63) IU/L Alkaline Phosphatase (46-116) U/L Troponin I (0.000-0.056) ng/mL Total Protein (6.4-8.2) g/dL Albumin (3.4-5.0) g/dL Globulin (2.6-4.0) g/dL Albumin/Globulin Ratio (0.9-1.6) Triglycerides (0-200) mg/dL Cholesterol (50-200) mg/dL LDL Cholesterol, Calc (60-180) mg/dL VLDL Cholesterol (5-55) mg/dL HDL Cholesterol (40-60) mg/dL Cholesterol/HDL Ratio (3.3-6.0) TSH 3rd Generation 4.82 H (0.36-3.74) uIU/mL 08/21/19 08/21/19 08/21/19 Range/Units 15:58 17:48 19:24 WBC (4.0-11.0) K/uL RBC (4.50-5.90) M/uL Hgb (13.0-17.0) g/dL Hct (38.0-50.0) % MCV (80.0-98.0) fL MCH (27.0-32.0) pg MCHC (31.0-37.0) g/dL RDW Std Deviation (28.0-62.0) fl RDW Coeff of Brittney (11.0-15.0) % Plt Count (150-400) K/uL MPV (7.40-12.00) fL Neut % (Auto) (48.0-80.0) % Lymph % (Auto) (16.0-40.0) % Delta % (Auto) (0.0-15.0) % Eos % (Auto) (0.0-7.0) % Baso % (Auto) (0.0-1.5) % Neut # (Auto) (1.4-5.7) K/uL Lymph # (Auto) (0.6-2.4) K/uL Delta # (Auto) (0.0-0.8) K/uL Eos # (Auto) (0.0-0.7) K/uL Baso # (Auto) (0.0-0.1) K/uL Nucleated RBC % /100WBC Nucleated RBCs # K/uL Sodium (136-148) mmol/L Potassium (3.5-5.1) mmol/L Chloride (98-107) mmol/L Carbon Dioxide (21.0-32.0) mmol/L BUN (7.0-18.0) mg/dL Creatinine (0.8-1.3) mg/dL Est Cr Clr Drug Dosing mL/min Estimated GFR (MDRD) ml/min Glucose (74-106) mg/dL POC Glucose 272 H (60-110) mg/dL Hemoglobin A1c (4.5-6.2) % Calcium (8.5-10.1) mg/dL Total Bilirubin (0.2-1.0) mg/dL AST (15-37) IU/L ALT (14-63) IU/L Alkaline Phosphatase (46-116) U/L Troponin I < 0.050 < 0.050 (0.000-0.056) ng/mL Total Protein (6.4-8.2) g/dL Albumin (3.4-5.0) g/dL Globulin (2.6-4.0) g/dL Albumin/Globulin Ratio (0.9-1.6) Triglycerides (0-200) mg/dL Cholesterol (50-200) mg/dL LDL Cholesterol, Calc (60-180) mg/dL VLDL Cholesterol (5-55) mg/dL HDL Cholesterol (40-60) mg/dL Cholesterol/HDL Ratio (3.3-6.0) TSH 3rd Generation (0.36-3.74) uIU/mL 08/21/19 08/21/19 08/22/19 Range/Units 20:55 21:57 06:02 WBC (4.0-11.0) K/uL RBC (4.50-5.90) M/uL Hgb (13.0-17.0) g/dL Hct (38.0-50.0) % MCV (80.0-98.0) fL MCH (27.0-32.0) pg MCHC (31.0-37.0) g/dL RDW Std Deviation (28.0-62.0) fl RDW Coeff of Brittney (11.0-15.0) % Plt Count (150-400) K/uL MPV (7.40-12.00) fL Neut % (Auto) (48.0-80.0) % Lymph % (Auto) (16.0-40.0) % Delta % (Auto) (0.0-15.0) % Eos % (Auto) (0.0-7.0) % Baso % (Auto) (0.0-1.5) % Neut # (Auto) (1.4-5.7) K/uL Lymph # (Auto) (0.6-2.4) K/uL Delta # (Auto) (0.0-0.8) K/uL Eos # (Auto) (0.0-0.7) K/uL Baso # (Auto) (0.0-0.1) K/uL Nucleated RBC % /100WBC Nucleated RBCs # K/uL Sodium (136-148) mmol/L Potassium (3.5-5.1) mmol/L Chloride (98-107) mmol/L Carbon Dioxide (21.0-32.0) mmol/L BUN (7.0-18.0) mg/dL Creatinine (0.8-1.3) mg/dL Est Cr Clr Drug Dosing mL/min Estimated GFR (MDRD) ml/min Glucose (74-106) mg/dL POC Glucose 231 H 132 H (60-110) mg/dL Hemoglobin A1c (4.5-6.2) % Calcium (8.5-10.1) mg/dL Total Bilirubin (0.2-1.0) mg/dL AST (15-37) IU/L ALT (14-63) IU/L Alkaline Phosphatase (46-116) U/L Troponin I < 0.050 (0.000-0.056) ng/mL Total Protein (6.4-8.2) g/dL Albumin (3.4-5.0) g/dL Globulin (2.6-4.0) g/dL Albumin/Globulin Ratio (0.9-1.6) Triglycerides (0-200) mg/dL Cholesterol (50-200) mg/dL LDL Cholesterol, Calc (60-180) mg/dL VLDL Cholesterol (5-55) mg/dL HDL Cholesterol (40-60) mg/dL Cholesterol/HDL Ratio (3.3-6.0) TSH 3rd Generation (0.36-3.74) uIU/mL 08/22/19 08/22/19 08/22/19 Range/Units 06:19 06:23 11:30 WBC 4.74 (4.0-11.0) K/uL RBC 4.56 (4.50-5.90) M/uL Hgb 13.6 (13.0-17.0) g/dL Hct 40.7 (38.0-50.0) % MCV 89.3 (80.0-98.0) fL MCH 29.8 (27.0-32.0) pg MCHC 33.4 (31.0-37.0) g/dL RDW Std Deviation 38.3 (28.0-62.0) fl RDW Coeff of Brittney 12 (11.0-15.0) % Plt Count 241 (150-400) K/uL MPV 9.80 (7.40-12.00) fL Neut % (Auto) 46.2 L (48.0-80.0) % Lymph % (Auto) 41.1 H (16.0-40.0) % Delta % (Auto) 11.4 (0.0-15.0) % Eos % (Auto) 1.1 (0.0-7.0) % Baso % (Auto) 0.2 (0.0-1.5) % Neut # (Auto) 2.2 (1.4-5.7) K/uL Lymph # (Auto) 2.0 (0.6-2.4) K/uL Delta # (Auto) 0.5 (0.0-0.8) K/uL Eos # (Auto) 0.1 (0.0-0.7) K/uL Baso # (Auto) 0.0 (0.0-0.1) K/uL Nucleated RBC % 0.0 /100WBC Nucleated RBCs # 0 K/uL Sodium 138 (136-148) mmol/L Potassium 3.6 (3.5-5.1) mmol/L Chloride 102 (98-107) mmol/L Carbon Dioxide 27.9 (21.0-32.0) mmol/L BUN 17 (7.0-18.0) mg/dL Creatinine 0.9 (0.8-1.3) mg/dL Est Cr Clr Drug Dosing 77.78 mL/min Estimated GFR (MDRD) > 60.0 ml/min Glucose 160 H (74-106) mg/dL POC Glucose 263 H (60-110) mg/dL Hemoglobin A1c (4.5-6.2) % Calcium 8.2 L (8.5-10.1) mg/dL Total Bilirubin 1.1 H (0.2-1.0) mg/dL AST 21 (15-37) IU/L ALT 29 (14-63) IU/L Alkaline Phosphatase 68 (46-116) U/L Troponin I (0.000-0.056) ng/mL Total Protein 7.5 (6.4-8.2) g/dL Albumin 3.3 L (3.4-5.0) g/dL Globulin 4.2 H (2.6-4.0) g/dL Albumin/Globulin Ratio 0.8 L (0.9-1.6) Triglycerides 147 (0-200) mg/dL Cholesterol 164 (50-200) mg/dL LDL Cholesterol, Calc 104 (60-180) mg/dL VLDL Cholesterol 29 (5-55) mg/dL HDL Cholesterol 31 L (40-60) mg/dL Cholesterol/HDL Ratio 5.3 (3.3-6.0) TSH 3rd Generation (0.36-3.74) uIU/mL Med Orders - Current: Current Medications Discontinued Medications Acetaminophen (Tylenol) 650 mg PO Q4H PRN PRN Reason: Pain (Mild 1-3)/fever Hydrocodone Bitart/Acetaminophen ([place] 325-5 Mg) 1 tab PO Q4H PRN PRN Reason: Pain (moderate 4-6) Aspirin (Aspirin) 324 mg PO ONETIME ONE Stop: 08/21/19 13:10 Last Admin: 08/21/19 13:28 Dose: 324 mg Aspirin (Aspirin) 81 mg PO DAILY [facility] Last Admin: 08/22/19 08:19 Dose: 81 mg Atorvastatin Calcium (Lipitor) 40 mg PO BEDTIME [facility] Last Admin: 08/21/19 20:56 Dose: 40 mg Enoxaparin Sodium (Lovenox) 40 mg SUBCUT Q24H [facility] Last Admin: 08/21/19 15:52 Dose: 40 mg Sodium Chloride (Normal Saline) 1,000 mls @ 125 mls/hr IV ASDIRECTED [facility] Last Admin: 08/21/19 18:29 Dose: 125 mls/hr Ibuprofen (Motrin) 800 mg PO Q6H PRN PRN Reason: Pain Influenza Virus Vaccine (Pharmacy To Dose - Influenza Vaccine) 1 each IM ONETIME ONE Stop: 08/21/19 16:35 Last Admin: 08/21/19 18:14 Dose: Not Given Influenza Virus Vaccine (Fluzone Quad Syringe) 60 mcg IM .ONCE ONE Stop: 08/21/19 17:01 Last Admin: 08/22/19 11:35 Dose: 60 mcg Insulin Aspart (Novolog) 0 unit SUBCUT TIDAC [facility]; Protocol Insulin Aspart (Novolog) 0 unit SUBCUT TIDAC [facility]; Protocol Last Admin: 08/21/19 16:15 Dose: Not Given Insulin Aspart (Novolog) 10 unit SUBCUT NOW STA Stop: 08/21/19 16:00 Last Admin: 08/21/19 16:21 Dose: 10 units Insulin Aspart (Novolog) 0 unit SUBCUT TIDAC [facility]; Protocol Last Admin: 08/21/19 18:13 Dose: Not Given Insulin Aspart (Novolog) 0 unit SUBCUT QIDACANDBED [facility]; Protocol Last Admin: 08/22/19 11:58 Dose: 9 units Insulin Detemir (Levemir) 10 unit SUBCUT BEDTIME [facility] Last Admin: 08/21/19 21:01 Dose: 10 units Insulin Human Regular (Novolin R) 10 unit IVPUSH NOW STA Stop: 08/21/19 16:22 Insulin Human Regular (Novolin R) 10 unit IVPUSH ONETIME ONE Stop: 08/21/19 16:22 Last Admin: 08/21/19 16:36 Dose: 10 units Ketorolac Tromethamine (Toradol) 30 mg IVPUSH ONETIME ONE Stop: 08/22/19 10:51 Last Admin: 08/22/19 11:31 Dose: 30 mg Morphine Sulfate (Morphine) 2 mg IVPUSH ONETIME ONE Stop: 08/21/19 13:57 Last Admin: 08/21/19 14:17 Dose: 2 mg Morphine Sulfate (Morphine) 2 mg IVPUSH Q2H PRN PRN Reason: Pain (severe 7-10) Stop: 08/22/19 14:22 Last Admin: 08/22/19 04:15 Dose: 2 mg Nitroglycerin (Nitrostat) 0.4 mg SL Q5M PRN PRN Reason: Chest Pain Last Admin: 08/21/19 13:33 Dose: 0.4 mg Ondansetron HCl (Zofran) 4 mg IVPUSH ONETIME ONE Stop: 08/21/19 13:11 Last Admin: 08/21/19 13:31 Dose: Not Given Ondansetron HCl (Zofran Odt) 4 mg PO Q4H PRN PRN Reason: nausea, able to take PO Ondansetron HCl (Zofran) 4 mg IVPUSH Q4H PRN PRN Reason: Nausea Temazepam (Restoril) 15 mg PO BEDTIME PRN PRN Reason: Sleep
--- NOTE | 2019-08-24 15:38 | ECHO ---
EXAM DATE: 08/21/19 PATIENT'S AGE: 59 The echocardiogram report can be seen in this patient's EMR (Electronic Medical Record) in the Reports section. The report has also been scanned into PACs. ERIS
== END 2019-08-22 14:00 | disposition home or self-care (01) ==
LOC: MW.ED 13:02 → MW.MS 14:06
PROVIDERS: ADMIT Student in an Organized Health Care Education/Training Program; ATTEND Student in an Organized Health Care Education/Training Program
DX: R07.89 Other chest pain (principal); E11.9 Type 2 diabetes mellitus without complications; I10 Essential (primary) hypertension
CPT/HCPCS: 36415; 71045; 71045-26; 80053; 80061; 82962; 83036; 84443; 84484; 85025; 90686; 93005; 93306; 96361; 96372; 96374; 96375; 96376; 99283; 99285-25; A9270-GY; G0378; J1650; J1815-GY; J1885; J2270; J7040

== ENCOUNTER 2019-12-07 16:48 | Emergency (ER) | payer SELFPAY ==
[2019-12-07] MEDS ORDERED: Nitroglycerin 2% Oint 1 GM UD Packet TOP ONE (17:28)
[2019-12-07] MEDS ORDERED: Sodium Chloride 0.9% 2.5 ML Syringe FLUSH PRN (17:28)
[2019-12-07] MEDS ORDERED: Aspirin 81 MG Tab.Chew PO ONE (17:28)
[2019-12-07] MEDS ORDERED: Sodium Chloride 0.9% 10 ML Syringe FLUSH PRN (17:28)
[2019-12-07] MEDS ORDERED: Sodium Chloride 0.9% 1,000 ML IV ONE (17:28)
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
--- NOTE | 2019-12-07 17:59 | CR ---
Chest: Portable view of the chest was obtained. Comparison: Prior chest x-ray of 08/21/19. Heart size and mediastinum are within normal limits for portable technique. Lungs are clear with no acute parenchymal change. Bony structures are grossly intact. Impression: 1. Nothing acute is seen on portable chest x-ray. Diagnostic code #1 This report was dictated in [place] Standard Time
[2019-12-07 18:10] LABS: BLOOD UREA NITROGEN,BUN 16 mg/dL (7.0-18.0); CARBON DIOXIDE,CO2 27.4 mmol/L (21.0-32.0); CHLORIDE,CL 102 mmol/L (98-107); GLUCOSE RANDOM 241 mg/dL (74-106); LIPASE 249 U/L (73-393); POTASSIUM,K 3.7 mmol/L (3.5-5.1); SODIUM,NA 137 mmol/L (136-148)
[2019-12-07 19:50] VITALS: BP 132/81; PULSE 60
== END 2019-12-07 19:46 | disposition home or self-care (01) ==
LOC: MW.ED 16:48
DX: R07.89 Other chest pain (principal); I10 Essential (primary) hypertension; E11.9 Type 2 diabetes mellitus without complications; E66.9 Obesity, unspecified; Z79.899 Other long term (current) drug therapy; Z79.82 Long term (current) use of aspirin; Z79.84 Long term (current) use of oral hypoglycemic drugs; Z68.29 Body mass index [BMI] 29.0-29.9, adult
CPT/HCPCS: 36415; 71045; 80053; 83690; 84484; 85025; 85379; 93005; 96360; 99285; A9270; J7030